=== PATIENT | female | born 1930 | race Caucasian/White ===

== ENCOUNTER → 2017-09-11 | Outpatient (CLI) | payer OTHER, MEDICARE ==
[~2017-09-11] MED LIST: CALCTAB7 PO; CMD5 PO; LVNIS150 SQ; METO50TA17 PO; NORT10CA2 PO; NTRGSL/4 UT
--- NOTE | 2017-09-11 13:12 | DIAGNOSTIC IMAGING REPORT ---
LUMBAR SPINE W/O CONTRAST HISTORY: Pain. Neuropathy. LUMBAR SPINE PAIN TECHNIQUE: Multiplanar multisequence MRI of the lumbar spine was performed without the use of contrast. COMPARISON: None. FINDINGS: For the purpose of the report the L5-S1 disc space will be located on axial image 2425. Degenerative disc change throughout the entire lumbar region. Posterior bulging discs at all levels. L1-L2: Mild broad-based bulging disc. Mild narrowing right neuroforamina. Minimal narrowing left neuroforamina. L2-L3: Significant multifactorial narrowing of the spinal canal. Broad-based disc herniation. Hypertrophic change posterior elements and ligamentum flavum. Mild narrowing of the neuroforamina bilaterally. L3-L4: Mild broad-based disc herniation. Moderate impact anterior thecal sac. Moderate to significant narrowing of the left and to lesser extent right neural foramina. L4-L5: Mild central disc herniation. Moderate impact anterior thecal sac. Moderate narrowing of the neuroforamina bilaterally. L5-S1: Broad-based central bulging disc. Contact with but no significant deformity of the thecal sac. Mild narrowing right neuroforamina. IMPRESSION: 1. Multilevel bulging discs and or disc herniations 2. Significant multifactorial narrowing of spinal canal at L2-L3. 3. Broad-based bulging disc/mild disc herniation L3-L4 4. Mild central disc herniation L4-L5 and L5-S1. 5. Mild/moderate narrowing of the neuroforamina bilaterally at multiple levels. The above report was generated using voice recognition software. It may contain grammatical, syntax or spelling errors. Electronically signed by: Mack Bradford M.D. 09/11/2017 1:10 PM Dictated Date/Time: 09/11/2017 12:56 PM
== END | disposition home or self-care (01) ==
LOC: C.MRI 11:40
PROVIDERS: ATTEND Orthopaedic Surgery Sports Medicine
DX: R29.898 Other symptoms and signs involving the musculoskeletal system (principal); M51.26 Other intervertebral disc displacement, lumbar region; M48.061 Spinal stenosis, lumbar region without neurogenic claudication; M47.816 Spondylosis without myelopathy or radiculopathy, lumbar region